=== PATIENT | female | born 1945 | race Caucasian/White ===

== ENCOUNTER 2022-01-18 16:18 | Inpatient (IN) | payer OTHER ==
[2022-01-18 20:29] VITALS: BMI 32.7
[2022-01-18] MEDS ORDERED: NALOXONE HCL (KLOXXADO) 8 MG SPRAY NS PRN (21:13)
[2022-01-18] MEDS ORDERED: MAGNESIUM CITRATE 300 ML BOTTLE PO PRN (21:13)
[2022-01-18] MEDS ORDERED: BISMUTH SUBSALICYLATE 524 MG/30 ML PO PRN (21:13)
[2022-01-18] MEDS ORDERED: LOPERAMIDE HCL 2 MG CAPSULE PO PRN (21:13)
[2022-01-18] MEDS ORDERED: BENZOCAINE/MENTHOL (CHLORASEPTIC ) LOZENGE MM PRN (21:13)
[2022-01-18] MEDS ORDERED: ACETAMINOPHEN 325 MG TABLET (FP) PO PRN (21:13)
[2022-01-18] MEDS ORDERED: DICYCLOMINE HCL 10 MG CAPSULE PO PRN (21:13)
[2022-01-18] MEDS ORDERED: ONDANSETRON *ODT* 4 MG TABLET SL PRN (21:13)
[2022-01-18] MEDS ORDERED: MAGNESIUM HYDROX 2400MG/30ML ORAL SUSPENSION 30 ML CUP PO PRN (21:13)
[2022-01-18] MEDS: THIAMINE HCL 100 MG TABLET (FP) PO SCH (22:56)
[2022-01-18] MEDS: IBUPROFEN 600 MG TABLET (FP) PO PRN (22:56)
[2022-01-18] MEDS: METHOCARBAMOL 500 MG TABLET PO PRN (22:56)
[2022-01-18] MEDS: MELATONIN 5 MG TABLETS PO SCH (22:56)
[2022-01-19] MEDS: INSULIN SLIDING SCALE (NOVOLOG) 1 VIAL SQ SCH ×3 (07:35→17:30)
[2022-01-19] MEDS: PRENATAL VITAMINS W/ FOLIC ACID TABLET (FP) PO SCH (11:22)
[2022-01-19 11:31] LABS: CALCIUM 8.8 mg/dL (8.5-10.1)
[2022-01-19 11:32] LABS: BLOOD UREA NITROGEN 19.5 mg/dL (7-18)
[2022-01-19 11:33] LABS: CREATININE 0.7 mg/dL (0.55-1.3)
[2022-01-19 11:36] LABS: BILIRUBIN,TOTAL 0.4 mg/dL (0.2-1)
[2022-01-19 11:37] LABS: HEMATOCRIT 36.2 % (32.4-45.2); MCHC 33.1 g/dl (32.0-36.0); MEAN CELL VOLUME 81.7 fl (80-96); MEAN PLT VOLUME 7.9 fl (7.5-11.1); PLATELET COUNT 244 10^3/uL (134-434); RBC 4.43 M/mm3 (3.60-5.2); RDW 14.5 % (11.6-15.6); TOT PROT 6.2 g/dl (6.4-8.2); WHITE BLOOD COUNT 5.6 K/mm3 (4.0-10.0)
[2022-01-19] MEDS: IBUPROFEN 600 MG TABLET (FP) PO PRN ×2 (12:22→22:53)
[2022-01-19] MEDS: METHOCARBAMOL 500 MG TABLET PO PRN ×2 (12:22→22:53)
[2022-01-19] MEDS: diazePAM 5 MG TABLET PO PRN ×2 (17:48→22:53)
[2022-01-19] MEDS: MELATONIN 5 MG TABLETS PO SCH ×2 (22:53→23:20)
[2022-01-19] MEDS: THIAMINE HCL 100 MG TABLET (FP) PO SCH ×2 (22:53→23:19)
[2022-01-20] MEDS: diazePAM 5 MG TABLET PO PRN ×3 (04:11→18:11)
[2022-01-20] MEDS: INSULIN SLIDING SCALE (NOVOLOG) 1 VIAL SQ SCH ×3 (07:44→17:31)
[2022-01-20] MEDS ORDERED: cloNIDine HCL 0.1 MG TABLET PO PRN (11:08)
[2022-01-20] MEDS ORDERED: methaDONE HCL 10 MG TABLET (FOR DETOX USE ONLY) PO ONE (12:00)
[2022-01-20] MEDS: METHOCARBAMOL 500 MG TABLET PO PRN ×2 (12:01→22:45)
[2022-01-20] MEDS: PRENATAL VITAMINS W/ FOLIC ACID TABLET (FP) PO SCH (12:02)
[2022-01-20] MEDS: IBUPROFEN 400 MG TABLET (FP) PO PRN (22:46)
[2022-01-20] MEDS: MELATONIN 5 MG TABLETS PO SCH (22:55)
[2022-01-20] MEDS: THIAMINE HCL 100 MG TABLET (FP) PO SCH (22:55)
[2022-01-21] MEDS: INSULIN SLIDING SCALE (NOVOLOG) 1 VIAL SQ SCH ×3 (06:28→18:21)
[2022-01-21] MEDS: PRENATAL VITAMINS W/ FOLIC ACID TABLET (FP) PO SCH (10:38)
[2022-01-21] MEDS: METHOCARBAMOL 500 MG TABLET PO PRN (10:38)
[2022-01-21] MEDS: diazePAM 5 MG TABLET PO PRN (10:39)
[2022-01-21] MEDS: MELATONIN 5 MG TABLETS PO SCH (22:41)
[2022-01-21] MEDS: IBUPROFEN 600 MG TABLET (FP) PO PRN (22:44)
[2022-01-21] MEDS: THIAMINE HCL 100 MG TABLET (FP) PO SCH (23:39)
[2022-01-22] MEDS: INSULIN SLIDING SCALE (NOVOLOG) 1 VIAL SQ SCH ×2 (07:23→10:51)
[2022-01-22] MEDS ORDERED: methaDONE HCL 10 MG TABLET (FOR DETOX USE ONLY) PO ONE (10:00)
[2022-01-22] MEDS: PRENATAL VITAMINS W/ FOLIC ACID TABLET (FP) PO SCH (10:42)
[2022-01-22] MEDS: IBUPROFEN 600 MG TABLET (FP) PO PRN ×2 (10:53→18:33)
[2022-01-22] MEDS: METHOCARBAMOL 500 MG TABLET PO PRN ×2 (10:54→18:33)
[2022-01-22] MEDS: THIAMINE HCL 100 MG TABLET (FP) PO SCH (22:24)
[2022-01-22] MEDS: MELATONIN 5 MG TABLETS PO SCH (22:24)
[2022-01-23] MEDS: IBUPROFEN 400 MG TABLET (FP) PO PRN ×2 (02:31→18:12)
[2022-01-23] MEDS: METHOCARBAMOL 500 MG TABLET PO PRN ×3 (02:33→18:12)
[2022-01-23] MEDS: PRENATAL VITAMINS W/ FOLIC ACID TABLET (FP) PO SCH (10:12)
[2022-01-23] MEDS: IBUPROFEN 600 MG TABLET (FP) PO PRN (10:13)
[2022-01-23 13:18] VITALS: RESP 18
[2022-01-23] MEDS: MELATONIN 5 MG TABLETS PO SCH (21:54)
[2022-01-23] MEDS: THIAMINE HCL 100 MG TABLET (FP) PO SCH (21:54)
[2022-01-24] MEDS: IBUPROFEN 600 MG TABLET (FP) PO PRN ×2 (04:08→10:59)
[2022-01-24] MEDS: METHOCARBAMOL 500 MG TABLET PO PRN ×2 (04:09→10:59)
[2022-01-24] MEDS: PRENATAL VITAMINS W/ FOLIC ACID TABLET (FP) PO SCH (10:59)
[2022-01-24] MEDS: hydrOXYzine PAMOATE 25 MG CAPSULE (FP) PO PRN ×2 (15:29→21:25)
[2022-01-24] MEDS: ACETAMINOPHEN 325 MG TABLET (FP) PO PRN (15:30)
[2022-01-24] MEDS: THIAMINE HCL 100 MG TABLET (FP) PO SCH (21:25)
[2022-01-24] MEDS: MELATONIN 5 MG TABLETS PO SCH (21:25)
[2022-01-24] MEDS: IBUPROFEN 400 MG TABLET (FP) PO PRN (21:27)
[2022-01-25] MEDS: IBUPROFEN 400 MG TABLET (FP) PO PRN (03:59)
[2022-01-25] MEDS: IBUPROFEN 600 MG TABLET (FP) PO PRN ×2 (11:24→19:04)
[2022-01-25] MEDS: METHOCARBAMOL 500 MG TABLET PO PRN ×3 (11:24→19:04)
[2022-01-25] MEDS: PRENATAL VITAMINS W/ FOLIC ACID TABLET (FP) PO SCH (11:24)
[2022-01-25] MEDS: hydrOXYzine PAMOATE 25 MG CAPSULE (FP) PO PRN ×2 (11:27→23:44)
[2022-01-25] MEDS: ACETAMINOPHEN 325 MG TABLET (FP) PO PRN (15:32)
[2022-01-25] MEDS: THIAMINE HCL 100 MG TABLET (FP) PO SCH (23:44)
[2022-01-25] MEDS: MELATONIN 5 MG TABLETS PO SCH (23:44)
[2022-01-26] MEDS: MAG HYDROX/AL HYDROX/SIMETH 30 ML UNIT-DOSE CUP PO PRN (01:17)
[2022-01-26] MEDS: METHOCARBAMOL 500 MG TABLET PO PRN ×3 (01:18→23:17)
[2022-01-26] MEDS: IBUPROFEN 600 MG TABLET (FP) PO PRN ×2 (01:18→14:50)
[2022-01-26] MEDS: PRENATAL VITAMINS W/ FOLIC ACID TABLET (FP) PO SCH (11:40)
[2022-01-26] MEDS: hydrOXYzine PAMOATE 25 MG CAPSULE (FP) PO PRN ×2 (14:51→22:12)
[2022-01-26] MEDS: THIAMINE HCL 100 MG TABLET (FP) PO SCH (22:11)
[2022-01-26] MEDS: MELATONIN 5 MG TABLETS PO SCH (22:13)
[2022-01-27] MEDS: PRENATAL VITAMINS W/ FOLIC ACID TABLET (FP) PO SCH (10:49)
[2022-01-27] MEDS ORDERED: BUPRENORPHINE/NALOXONE 2 MG/0.5 MG FILM PACKET SL ONE (13:34)
[2022-01-27] MEDS: THIAMINE HCL 100 MG TABLET (FP) PO SCH (22:30)
[2022-01-27] MEDS: MELATONIN 5 MG TABLETS PO SCH (22:30)
[2022-01-28] MEDS: BUPRENORPHINE/NALOXONE 2 MG/0.5 MG FILM PACKET SL SCH ×2 (07:21→11:23)
[2022-01-28] MEDS: PRENATAL VITAMINS W/ FOLIC ACID TABLET (FP) PO SCH (11:22)
[2022-01-28] MEDS: THIAMINE HCL 100 MG TABLET (FP) PO SCH (22:00)
[2022-01-28] MEDS: MELATONIN 5 MG TABLETS PO SCH (22:00)
[2022-01-29] MEDS: PRENATAL VITAMINS W/ FOLIC ACID TABLET (FP) PO SCH (10:50)
[2022-01-29] MEDS: BUPRENORPHINE/NALOXONE 2 MG/0.5 MG FILM PACKET SL SCH (10:52)
[2022-01-29] MEDS: THIAMINE HCL 100 MG TABLET (FP) PO SCH (23:14)
[2022-01-29] MEDS: MELATONIN 5 MG TABLETS PO SCH (23:14)
[2022-01-30] MEDS: PRENATAL VITAMINS W/ FOLIC ACID TABLET (FP) PO SCH (10:22)
[2022-01-30] MEDS: BUPRENORPHINE/NALOXONE 2 MG/0.5 MG FILM PACKET SL SCH (10:23)
[2022-01-30] MEDS: BACLOFEN 10 MG TABLET (FP) PO PRN (15:06)
[2022-01-30] MEDS: NAPROXEN 500 MG TABLET PO SCH (21:19)
[2022-01-30] MEDS: MELATONIN 5 MG TABLETS PO SCH (21:20)
[2022-01-30] MEDS: THIAMINE HCL 100 MG TABLET (FP) PO SCH (21:21)
[2022-01-31] MEDS: PRENATAL VITAMINS W/ FOLIC ACID TABLET (FP) PO SCH (11:01)
[2022-01-31] MEDS: NAPROXEN 500 MG TABLET PO SCH (11:02)
[2022-01-31] MEDS: BUPRENORPHINE/NALOXONE 2 MG/0.5 MG FILM PACKET SL SCH (11:02)
[2022-01-31] MEDS: NAPROXEN 500 MG TABLET PO PRN (15:40)
[2022-01-31] MEDS: THIAMINE HCL 100 MG TABLET (FP) PO SCH (22:36)
[2022-01-31] MEDS: MELATONIN 5 MG TABLETS PO SCH (22:37)
[2022-02-01] MEDS: BUPRENORPHINE/NALOXONE 2 MG/0.5 MG FILM PACKET SL SCH (10:45)
[2022-02-01] MEDS: MULTIVIT-MINERALS ORAL LIQUID PO SCH (10:45)
[2022-02-01] MEDS: NAPROXEN 500 MG TABLET PO PRN (10:50)
[2022-02-01] MEDS: MELATONIN 5 MG TABLETS PO SCH (21:08)
[2022-02-01] MEDS: THIAMINE HCL 100 MG TABLET (FP) PO SCH (21:08)
[2022-02-02] MEDS: BACLOFEN 10 MG TABLET (FP) PO PRN (07:52)
[2022-02-02] MEDS: MULTIVIT-MINERALS ORAL LIQUID PO SCH (10:10)
[2022-02-02] MEDS: BUPRENORPHINE/NALOXONE 2 MG/0.5 MG FILM PACKET SL SCH (10:12)
[2022-02-02] MEDS: THIAMINE HCL 100 MG TABLET (FP) PO SCH (21:41)
[2022-02-02] MEDS: MELATONIN 5 MG TABLETS PO SCH (21:41)
[2022-02-03] MEDS: NAPROXEN 500 MG TABLET PO PRN (09:58)
[2022-02-03] MEDS: MULTIVIT-MINERALS ORAL LIQUID PO SCH (09:58)
[2022-02-03] MEDS: BUPRENORPHINE/NALOXONE 2 MG/0.5 MG FILM PACKET SL SCH (10:00)
[2022-02-03] MEDS: BACLOFEN 10 MG TABLET (FP) PO PRN (12:56)
[2022-02-03] MEDS: MAG HYDROX/AL HYDROX/SIMETH 30 ML UNIT-DOSE CUP PO PRN ×2 (12:59→22:32)
[2022-02-03] MEDS: THIAMINE HCL 100 MG TABLET (FP) PO SCH (21:16)
[2022-02-03] MEDS: MELATONIN 5 MG TABLETS PO SCH (21:16)
[2022-02-04] MEDS: BUPRENORPHINE/NALOXONE 2 MG/0.5 MG FILM PACKET SL SCH (10:36)
[2022-02-04] MEDS: MULTIVIT-MINERALS ORAL LIQUID PO SCH (10:37)
[2022-02-04] MEDS: DOCUSATE SODIUM 100 MG CAPSULE (FP) PO SCH ×2 (13:34→21:41)
[2022-02-04] MEDS: BACLOFEN 10 MG TABLET (FP) PO PRN ×2 (13:36→21:43)
[2022-02-04] MEDS: MELATONIN 5 MG TABLETS PO SCH (21:41)
[2022-02-04] MEDS: THIAMINE HCL 100 MG TABLET (FP) PO SCH (21:42)
[2022-02-04] MEDS: hydrOXYzine PAMOATE 25 MG CAPSULE (FP) PO PRN (21:43)
[2022-02-05] MEDS: DOCUSATE SODIUM 100 MG CAPSULE (FP) PO SCH ×4 (09:00→22:14)
[2022-02-05] MEDS: NAPROXEN 500 MG TABLET PO PRN (11:06)
[2022-02-05] MEDS: MULTIVIT-MINERALS ORAL LIQUID PO SCH (11:06)
[2022-02-05] MEDS: BACLOFEN 10 MG TABLET (FP) PO PRN (21:16)
[2022-02-05] MEDS: MELATONIN 5 MG TABLETS PO SCH (22:14)
[2022-02-05] MEDS: THIAMINE HCL 100 MG TABLET (FP) PO SCH (22:14)
[2022-02-05] MEDS: hydrOXYzine PAMOATE 25 MG CAPSULE (FP) PO PRN (23:21)
[2022-02-06] MEDS: DOCUSATE SODIUM 100 MG CAPSULE (FP) PO SCH (07:10)
[2022-02-06 08:16] VITALS: BP 113/71; PULSE 93; TEMP 96.7
[2022-02-06] MEDS: MULTIVIT-MINERALS ORAL LIQUID PO SCH (10:23)
== END 2022-02-06 12:00 | disposition home or self-care (01) | DRG 895 ==
LOC: YASAS 16:18 → UNDOADMIN 22:01 → Y3N 22:01 → Y5N 01-23 18:06
PROVIDERS: ADMIT Allergy & Immunology; ATTEND Surgery
PROC: HZ2ZZZZ Detoxification Services for Substance Abuse Treatment (ICD-10-PCS; 2022-01-18)
PROC: HZ42ZZZ Group Counseling for Substance Abuse Treatment, Cognitive-Behavioral (ICD-10-PCS; principal; 2022-01-26)
DX: F11.20 Opioid dependence, uncomplicated (principal); F13.20 Sedative, hypnotic or anxiolytic dependence, uncomplicated; I49.9 Cardiac arrhythmia, unspecified; G47.00 Insomnia, unspecified; G89.29 Other chronic pain; M54.31 Sciatica, right side; M54.32 Sciatica, left side; M62.838 Other muscle spasm; R73.03 Prediabetes; R26.89 Other abnormalities of gait and mobility; Z99.89 Dependence on other enabling machines and devices; Z88.8 Allergy status to other drugs, medicaments and biological substances
CPT/HCPCS: 36415; 80053; 82962; 85027; 86780; 93005; 93010; C9803-CS; J0475; Q0162; U0003; U0005